=== PATIENT | male | born 1995 | race Caucasian/White ===

== ENCOUNTER 2017-10-29 11:46 | Emergency (ER) ==
[2017-10-29] MEDS ORDERED: SODIUM CHLORIDE 1,000 ML IV STA ×3 (12:01→14:08)
[2017-10-29 12:13] VITALS: TEMP 98; BMI 25.1
[2017-10-29] MEDS ORDERED: ATIVAN IVP STA (12:58)
--- NOTE | 2017-10-29 13:23 | CT ---
EXAM: CT abdomen and pelvis without contrast. HISTORY: Vomiting TECHNIQUE: Multi-slice transaxial helical CT. Coronal and sagittal reformatons were performed. COMPARISON: None FINDINGS: The heart is normal in size. The lung bases are clear. Evaluation of the solid organs is limited without IV contrast. The spleen is on the upper limits of normal in size. No hydronephrosis or renal calculus is seen. The liver, gallbladder, pancreas, and adrenal glands appear grossly unremarkable within the confines of a noncontrast exam. The bowel is not dilated. Small bowel loops are diffusely fluid-filled without distinct transition po int. No pathologic bowel dilation is seen. The appendix is normal in size. Urinary bladder appears unremarkable. No evidence of free fluid within the pelvis is seen. There is no retroperitoneal tiffany nopathy. Osseous structures appear unremarkable. IMPRESSION: 1. Nondilated diffuse fluid filled small bowel loops. This can be seen with enteritis or ileus. 2. Normal appendix.
--- NOTE | 2017-10-29 15:01 | ED.PDOC ---
General ED Provider: Dr. HILL MORRIS-ER Chief Complaint: Nausea/Vomiting Stated Complaint: went snowboarding last night for hours--didnt drink much--now all muscles are hurting and vomited x 2-- Time Seen by Physician: 11:55 Mode of Arrival: Wheelchair Information Source: Patient, Family Exam Limitations: No limitations Nursing and Triage Documentation Reviewed and Agree: Yes Reviewed sepsis parameters & appropriate labs ordered?: Yes System Inflammatory Response Syndrome: Not Applicable Sepsis Protocol: For patient's 13 years and over: Temp is 96.8 and below OR 101 and greater Pulse >90 BPM Resp >20/minute Acutely Altered Mental Status Are patient's symptoms suggestive of a new infection, such as: -Pneumonia -Skin, Soft Tissue -Endocarditis -UTI -Bone, Joint Infection -Implantable Device -Acute Abdominal Infection -Wound Infection -Meningitis -Blood Stream Catheter Infection -Unknown Musculoskeletal Complaint Exam - Upper Extremity Complaint/Exam Location of Pain: Reports: Arm, Forearm, Wrist Mechanism of Injury: Reports: No known trauma Onset/Duration: 1-2 hours Symptoms Are: Still present Timing: Constant Initial Severity: Mild Current Severity: Moderate Location: Reports: Discrete (all muscles) Character: Reports: Dull, Aching, Stiffness Aggravating: Reports: Movement, Lifting, Flexion, Extension Alleviating: Reports: None Related History: Reports: Similar episode Non-Orthopedic Risk Factors: Reports: None DVT Risk Factors: Reports: None Septic Arthritis Risk Factors: Reports: None Related Surgical History: Reports: None Upper Extremity Findings: Present: Tenderness NV Bundle Intact Distal to Injury: No Compartment Syndrome Risk Factors: Present: Pain Differential Diagnoses: Other Quality Indicator For Non-Traumatic Chest Pain/Syncope: EKG Performed Review of Systems - Review Of Systems Constitutional: Reports: Weakness Eyes: Reports: No symptoms Ears, Nose, Mouth, Throat: Reports: No symptoms Respiratory: Reports: No symptoms Cardiac: Reports: No symptoms GI: Reports: Nausea, Poor fluid intake, Vomiting : Reports: No symptoms Musculoskeletal: Reports: Muscle pain Skin: Reports: No symptoms Neurological: Reports: No symptoms Endocrine: Reports: No symptoms Hematologic/Lymphatic: Reports: No symptoms All Other Systems: Reviewed and Negative Past Medical History - Past Medical History Previously Healthy: Yes Endocrine: Reports: Unknown Cardiovascular: Reports: Unknown Respiratory: Reports: Unknown Hematological: Reports: Unknown Gastrointestinal: Reports: Unknown Genitourinary: Reports: Unknown Neuro/Psych: Reports: Unknown Musculoskeletal: Reports: Unknown Cancer: Reports: Unknown - Surgical History General Surgical History: Reports: Unknown - Family History Family History: Reports: Unknown - Social History Smoking Status: Never smoker Hx Substance Use: No Alcohol Screening: None Lives: With family - Immunizations Tetanus Shot up to Date: Yes Physical Exam - Physical Exam Appearance: Well-appearing Pain Distress: Moderate Eyes: ATTILA, EOMI, Conjunctiva clear ENT: Ears normal, Nose normal, Oropharynx normal Neck: Supple Respiratory: Airway patent Cardiovascular: RRR, Pulses normal, No rub, No murmur GI/: Tender Musculoskeletal: Normal strength, No edema, No calf tenderness, Limited ROM Skin: Warm Neurological: Sensation intact, Motor intact, Reflexes intact, Cranial nerves intact, Alert, Oriented Psychiatric: Affect appropriate, Mood appropriate Interpretation - Radiology Interpretation Radiology Interpretation By: Radiologist Radiology Results: Negative Exam Interpreted: Portable CXR, CT Scan - EKG Interpretation Time of EKG #1: 15:02 Rate: Normal Rhythm: Sinus Ectopy: None [place]: NL ST Segment: Normal Re-Evaluation - Re-Evaluation Time of Re-Evaluation: 15:02 Status: Improved (myalgias and nausea resolved--"im feeling better now"--bp up to 130) Vital Signs Stable: Yes Pain Level: 0 Appearance: NAD Lungs: Clear Skin: Warm and Dry Neuro: Alert and Oriented X3 CV: RRR Critical Care Note - Critical Care Note Total Time (mins): 0 Course - Course Hematology/Chemistry: 10/29/17 12:15 10/29/17 12:15 Orders, Labs, Meds: Lab Review 10/29/17 10/29/17 10/29/17 11:59 12:15 12:15 WBC 16.17 H RBC 5.36 Hgb 16.2 Hct 48.0 MCV 89.6 MCH 30.2 MCHC 33.8 RDW Coeff of Breana 14.6 Plt Count 276 Immature Gran % (Auto) 0.4 Neut % (Auto) 77.7 Lymph % (Auto) 12.7 Irwin % (Auto) 8.3 Eos % (Auto) 0.7 Baso % (Auto) 0.2 Immature Gran # (Auto) 0.1 Neut # 12.5 H Lymph # 2.1 Irwin # 1.4 Eos # 0.1 Baso # 0.0 D-Dimer (Manual) Puncture Site Lb O2 Saturation 100.0 ABG pH 7.670 H* ABG pCO2 16.1 L ABG pO2 131.0 H ABG HCO3 18.6 L ABG Total CO2 19 L ABG Base Excess -2 FiO2 % 21.0 Sodium 138 Potassium 3.9 Chloride 99 Carbon Dioxide 19 L Anion Gap 23.9 BUN 18 Creatinine 1.21 H Estimated GFR (MDRD) 76.00 BUN/Creatinine Ratio 14.87 Glucose 130 H Calcium 10.1 Magnesium 2.1 Total Bilirubin 1.4 H AST 36 ALT 53 Alkaline Phosphatase 88 Total Creatine Kinase 184 CK-MB (CK-2) 1.2 CK-MB (CK-2) % 0.65389 Troponin I Total Protein 8.1 Albumin 4.6 Globulin 3.5 Albumin/Globulin Ratio 1.31 Amylase 58 Lipase 12 Urine Color Urine Clarity Urine pH Ur Specific [place] Urine Protein Urine Glucose (UA) Urine Ketones Urine Blood Urine Nitrite Urine Bilirubin Urine Urobilinogen Ur Leukocyte Esterase Urine Microscopic RBC Urine Microscopic WBC Ur Squamous Epith Cells Urine Bacteria Urine Mucus Urine Opiates Screen Ur Oxycodone Screen Urine Methadone Screen Ur Propoxyphene Screen Ur Barbiturates Screen U Tricyclic Antidepress Ur Phencyclidine Scrn Ur Amphetamine Screen U Methamphetamines Scrn U Benzodiazepines Scrn Urine Cocaine Screen U Cannabinoids Screen Plasma/Serum Alcohol < 10.0 Influenza A (Rapid) Influenza B (Rapid) 10/29/17 10/29/17 10/29/17 12:15 13:15 13:15 WBC RBC Hgb Hct MCV MCH MCHC RDW Coeff of Breana Plt Count Immature Gran % (Auto) Neut % (Auto) Lymph % (Auto) Irwin % (Auto) Eos % (Auto) Baso % (Auto) Immature Gran # (Auto) Neut # Lymph # [place]win # Eos # Baso # D-Dimer (Manual) 174.60 Puncture Site O2 Saturation ABG pH ABG pCO2 ABG pO2 ABG HCO3 ABG Total CO2 ABG Base Excess FiO2 % Sodium Potassium Chloride Carbon Dioxide Anion Gap BUN Creatinine Estimated GFR (MDRD) BUN/Creatinine Ratio Glucose Calcium Magnesium Total Bilirubin AST ALT Alkaline Phosphatase Total Creatine Kinase CK-MB (CK-2) CK-MB (CK-2) % Troponin I 0.0140 Total Protein Albumin Globulin Albumin/Globulin Ratio Amylase Lipase Urine Color Urine Clarity Urine pH Ur Specific [place] Urine Protein Urine Glucose (UA) Urine Ketones Urine Blood Urine Nitrite Urine Bilirubin Urine Urobilinogen Ur Leukocyte Esterase Urine Microscopic RBC Urine Microscopic WBC Ur Squamous Epith Cells Urine Bacteria Urine Mucus Urine Opiates Screen Ur Oxycodone Screen Urine Methadone Screen Ur Propoxyphene Screen Ur Barbiturates Screen U Tricyclic Antidepress Ur Phencyclidine Scrn Ur Amphetamine Screen U Methamphetamines Scrn U Benzodiazepines Scrn Urine Cocaine Screen U Cannabinoids Screen Plasma/Serum Alcohol Influenza A (Rapid) Negative by naat Influenza B (Rapid) Negative by naat 10/29/17 10/29/17 13:20 13:20 WBC RBC Hgb Hct MCV MCH MCHC RDW Coeff of Breana Plt Count Immature Gran % (Auto) Neut % (Auto) Lymph % (Auto) [place]win % (Auto) Eos % (Auto) Baso % (Auto) Immature Gran # (Auto) Neut # Lymph # [place] # Eos # Baso # D-Dimer (Manual) Puncture Site O2 Saturation ABG pH ABG pCO2 ABG pO2 ABG HCO3 ABG Total CO2 ABG Base Excess FiO2 % Sodium Potassium Chloride Carbon Dioxide Anion Gap BUN Creatinine Estimated GFR (MDRD) BUN/Creatinine Ratio Glucose Calcium Magnesium Total Bilirubin AST ALT Alkaline Phosphatase Total Creatine Kinase CK-MB (CK-2) CK-MB (CK-2) % Troponin I Total Protein Albumin Globulin Albumin/Globulin Ratio Amylase Lipase Urine Color Yellow Urine Clarity Clear Urine pH >=9.0 Ur Specific [place] 1.015 Urine Protein 1+ Urine Glucose (UA) Negative Urine Ketones 2+ Urine Blood Negative Urine Nitrite Negative Urine Bilirubin Negative Urine Urobilinogen 1.0 Ur Leukocyte Esterase Negative Urine Microscopic RBC 0-2 Urine Microscopic WBC 0-2 Ur Squamous Epith Cells Not present Urine Bacteria Trace Urine Mucus Trace Urine Opiates Screen Negative Ur Oxycodone Screen Negative Urine Methadone Screen Negative Ur Propoxyphene Screen Negative Ur Barbiturates Screen Negative U Tricyclic Antidepress Negative Ur Phencyclidine Scrn Negative Ur Amphetamine Screen Negative U Methamphetamines Scrn Negative U Benzodiazepines Scrn Negative Urine Cocaine Screen Negative U Cannabinoids Screen Negative Plasma/Serum Alcohol Influenza A (Rapid) Influenza B (Rapid) Orders Category Date Time Status ABG DRAW REQUEST Stat CARDIO 10/29/17 12:00 Completed EKG-(ED ONLY) Stat CARDIO 10/29/17 11:59 Completed [facility] [place] [[employer]] .ONCE EMERGENCY 10/29/17 12:00 Active ED IV/MEDIPORT/POWERPORT .ONCE EMERGENCY 10/29/17 12:01 Active ABG Stat LAB 10/29/17 11:59 Completed AMYLASE Stat LAB 10/29/17 12:15 Completed BLOOD ALCOHOL Stat LAB 10/29/17 12:15 Completed BLOOD CULTURE (ED ONLY) Stat LAB 10/29/17 12:15 Received CBC W/ AUTO DIFF Stat LAB 10/29/17 12:15 Completed COMPREHENSIVE METABOLIC PANEL Stat LAB 10/29/17 12:15 Completed CREATINE KINASE Stat LAB 10/29/17 12:15 Completed D-DIMER Stat LAB 10/29/17 13:15 Completed DRUG SCREEN, URINE, RAPID Stat LAB 10/29/17 13:20 Completed LIPASE Stat LAB 10/29/17 12:15 Completed MAGNESIUM Stat LAB 10/29/17 12:15 Completed MOLECULAR FLU A/B Stat LAB 10/29/17 12:15 Completed MOLECULAR GROUP A STREP Stat LAB 10/29/17 12:15 Completed TROPONIN I Stat LAB 10/29/17 13:15 Completed URINALYSIS C & S IF INDICATED Stat LAB 10/29/17 13:20 Completed 0.9 % Sodium Chloride [Saline Flush] MEDS 10/29/17 12:01 Active 1 syr IVF PRN PRN Lorazepam Inj [Ativan] MEDS 10/29/17 12:58 Discontinued 1 mg IVP ONCE STA Sodium Chloride 0.9% [Sodium Chloride] 1,000 ml MEDS 10/29/17 12:01 Discontinued IV BOLUS Sodium Chloride 0.9% [Sodium Chloride] 1,000 ml MEDS 10/29/17 12:01 Discontinued IV BOLUS Sodium Chloride 0.9% [Sodium Chloride] 1,000 ml MEDS 10/29/17 14:08 Discontinued IV BOLUS CHEST, 1V AP ONLY Stat RADS 10/29/17 12:[address] ABDOMEN/PELVIS WO CONTRAST Stat RADS 10/29/17 12:01 Completed Medications Generic Name Dose Route Start Last Admin Trade Name Freq PRN Reason Stop Dose Admin Sodium Chloride 1 syr 10/29/17 12:01 Saline Flush IVF PRN PRN To flush IV Discontinued Medications Generic Name Dose Route Start Last Admin Trade Name Freq PRN Reason Stop Dose Admin Sodium Chloride 1,000 mls @ 1,000 mls/hr 10/29/17 12:01 10/29/17 12:01 Sodium Chloride IV 10/29/17 13:00 1,000 mls/hr BOLUS STA Administration Sodium Chloride 1,000 mls @ 1,000 mls/hr 10/29/17 12:01 10/29/17 13:15 Sodium Chloride IV 10/29/17 13:00 1,000 mls/hr BOLUS STA Administration Sodium Chloride 1,000 mls @ 1,000 mls/hr 10/29/17 14:08 Sodium Chloride IV 10/29/17 15:07 BOLUS STA Lorazepam 1 mg 10/29/17 12:58 Ativan IVP 10/29/17 12:59 ONCE STA Vital Signs: Temp Pulse Resp BP Pulse Ox 10/29/17 11:52 98 F 90 24 76/40 L 100 Departure - Departure Time of Disposition: 15:03 Disposition: HOME SELF-CARE Discharge Problem: Dehydration Instructions: Dehydration (ED) Condition: Good Pt referred to PMD for follow-up: Yes Additional Instructions: f/u with pcp if problems Allergies/Adverse Reactions: Allergies promethazine [From Phenergan] Adverse Reaction (Verified 10/29/17 12:18) Home Medications: Ambulatory Orders 1 [No Reported Medications] 10/29/17 Disposition Discussed With: Patient, Family
[2017-10-29 15:35] VITALS: BP 119/43
--- NOTE | 2017-10-30 13:24 | DI ---
Exam: Portable single view chest. HISTORY: Myalgia. Vomiting.. COMPARISON: None. FINDINGS: A single portable AP view of the chest. The lungs are clear without consolidation or effu roz. There is no pneumothorax. There are no suspicious pulmonary nodules. The heart size and pulm onary vasculature are within normal limits, allowing for portable technique. The osseous structures are normal for age. IMPRESSION: No acute pulmonary disease.
== END 2017-10-29 15:31 | disposition home or self-care (01) ==
LOC: ED 11:46
DX: E86.0 Dehydration (principal)
CPT/HCPCS: 36415; 80053; 80306; 80307; 81001; 82150; 82550; 82553; 82803; 83690; 83735; 84484; 85025; 85379; 87040; 87502; 87651; 93005; 93010; 96360; 96361; 99284

== ENCOUNTER 2017-12-07 13:55 | Outpatient (CLI) | END 2017-12-07 13:56 | disposition home or self-care (01) | LOC: LAB 13:55 | PROVIDERS: ATTEND Internal Medicine | DX: R05 Cough (principal); R50.9 Fever, unspecified | CPT/HCPCS: 87502 ==